=== PATIENT | female | born 1965 | race Caucasian/White ===

== ENCOUNTER 2017-01-15 14:32 | Inpatient (IN) ==
--- NOTE | 2017-01-15 16:00 | Emergency Department Note ---
Disposition Clinical Impression: Cellulitis, Abrasion of left lower leg with infection Disposition: Transfer Other Condition: Good Referrals: David Mayorga Jr, MD [Partnered Physician] - Forms: ED Satisfaction Letter Time of Disposition: 16:35 Extremity Problem HPI - General Chief complaint: ED Extremity Problem,Nontraumatic Stated complaint: Left leg infection, sent by Dr. Mayorga Time Seen by Provider: 01/15/17 15:38 Source: patient Mode of arrival: ambulatory Limitations: no limitations Nursing Notes Reviewed: Yes Vital Signs Reviewed: Yes - History of Present Illness HPI Narrative: This is a 51-year-old female who presents with a injury to her left lower extremity. Patient states last week she hit her left leg on a fence she was putting up. Patient had puncture wounds at that time that continued to get red and irritated and opened up. Patient states she went to her family doctor and they incised the area and then put packing in place. Patient states she was then told her to come over to get IV antibiotics per her pcp. Pt Subjective Complaint: extremity pain Onset (ago): week(s) (1) Consistency: constant Injury Location: left, lower extremity Pain Scale: 7 Quality: aching Radiation: none Improves with: nothing Worsens with: weight bearing, walking - Related Data Previous Rx's Medication Instructions Recorded MethylPREDNISolone [Medrol] 4 mg PO DAILY 6 Days 02/17/16 Sulfamethoxazole/Trimeth DS 1 each PO BID #20 tablet 02/17/16 [Bactrim DS] Allergies Allergy/AdvReac Type Severity Reaction Status Date / Time morphine Allergy Rash Verified 02/17/16 18:27 All systems ED: reviewed and negative except as stated. Constitutional: Denies: fever, chills, weakness, weight change Eyes: Denies: eye pain, eye discharge, vision change ENT ED: Denies: ear pain, throat pain, dental pain, hearing loss, epistaxis, congestion, dysphagia Cardiovascular: Denies: chest pain, palpitations, dyspnea on exertion, edema, syncope Respiratory: Denies: cough, dyspnea, wheezes, hemoptysis, stridor Gastrointestinal: Denies: abdominal pain, nausea, vomiting, diarrhea, constipation, hematemesis, melena, hematochezia Genitourinary: Denies: dysuria, frequency, hematuria, discharge Musculoskeletal: Denies: back pain, neck pain, arthralgia, myalgia Integumentary: Reports: lesions (puncture wounds anterior LLE), other (erythema to LLE anterior). Denies: rash, abrasion Neurological: Denies: headache, weakness, numbness, paresthesias, confusion, abnormal gait, vertigo Psychiatric: Denies: anxiety, depression, suicidal thoughts, homicidal thoughts , auditory hallucinations, visual hallucinations Endocrine: Denies: fatigue Hematological/Lymphatic: Denies: easy bleeding, easy bruising Allergic/Immunologic: Denies: facial swelling, urticaria Past Medical History - Past Medical History Attestation: Yes The following information was validated with the patient. 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 history - Social History Smoking Status: Never smoker Smokeless Tobacco Status: No Alcohol use: Reports: none Drug use: Reports: none Physical Exam - General Limitations: no limitations General appearance: alert, in no apparent distress - Head Head exam: atraumatic, normocephalic, normal inspection - Eye Eye exam: Present: normal appearance, PERRL, EOMI - ENT ENT exam: normal exam, normal oropharynx, mucous membranes moist - Expanded ENT Exam External ear exam: Present: normal external inspection Mouth exam: Present: normal external inspection Teeth exam: Present: normal inspection Throat exam: Present: normal inspection - Neck Neck exam: Present: normal inspection, full ROM, trachea midline - Chest Chest inspection: Present: normal inspection, symmetric chest wall rise - Respiratory Respiratory exam: Present: normal lung sounds bilaterally - Cardiovascular Cardiovascular exam: Present: regular rate, normal rhythm, normal heart sounds - Abdominal Exam Abdominal exam: Present: soft, Non-Tender. Absent: tenderness, distention, guarding, rebound, rigidity - Extremities Exam Extremities exam: Present: normal inspection, full ROM, tenderness (LLE). Absent: pedal edema - Expanded Upper Extremity Exam Shoulder exam: Present: normal inspection, full ROM Arm exam: Present: normal inspection, full ROM Elbow exam: Present: normal inspection, full ROM Forearm/Wrist exam: Present: normal inspection, full ROM Hand exam: Present: normal inspection, full ROM Vascular exam: Normal: capillary refill, radial pulse - Expanded Lower Extremity Exam Hip/Pelvis exam: Present: normal inspection, full ROM Upper leg exam: Present: normal inspection, full ROM Knee exam: Present: normal inspection, full ROM Lower leg exam: Present: full ROM, tenderness (L anterior leg), erythema (L anterior leg), other (puncture wounds x 2 to anterior L leg with necrotic edges) Ankle exam: Present: normal inspection, full ROM Foot/toe exam: Present: normal inspection, full ROM Neurovascular/Tendon exam: Absent: motor deficit, sensory deficit, tendon deficit - Back Exam Back exam: Present: normal inspection, full ROM. Absent: tenderness - Neurological Exam Neurological exam: Present: alert, oriented X3 - Expanded Neurological Exam Patient oriented to: Present: person, place, time Coma Scale Eye Opening: Spontaneous Coma Scale Motor Response: Obeys Commands Coma Scale Verbal Response: Oriented Coma Scale Total: 15 - Psychiatric Psychiatric exam: Present: normal affect, normal mood - Skin Skin exam: Present: warm, dry, intact, normal color Course - Consultations Consultation #1: We spoke with wound care (Dr. Macias) and they are going to come and evaluate the pt. Time: 16:00 Consultation #2: Dr. Macias will take pt to the OR. Time: 16:33 Vital Signs Temperature 98.3 F 01/15/17 14:46 Pulse Rate 70 01/15/17 14:46 Respiratory Rate 18 01/15/17 14:46 Blood Pressure 151/88 01/15/17 14:46 O2 Sat by Pulse Oximetry 98 01/15/17 14:46 Temperature 98.3 F 01/15/17 14:46 Pulse Rate 70 01/15/17 14:46 Respiratory Rate 18 01/15/17 14:46 Blood Pressure 151/88 01/15/17 14:46 O2 Sat by Pulse Oximetry 98 01/15/17 14:46 Oxygen Delivery Oxygen Delivery Room Air Extremity Problem, Nontraumati - Medical Records Medical records reviewed: Yes I reviewed the patient's medical records. - Lab Data Lab results reviewed: Yes I reviewed the patient's lab results. - Radiology Data Radiology results reviewed: Yes I reviewed the patient's radiology results.
[2017-01-15] MEDS ORDERED: Clindamycin 600 MG/50 ML 600 MG/50 ML IV.SOLN IVPB ONE ×2 (16:32→19:40)
[2017-01-15] MEDS ORDERED: Piperacillin/Tazobactam 3.375 GM in D5% in Water (Mini-Bag+) 100 ML IVPB ONE ×2 (16:32→19:40)
[2017-01-15] MEDS ORDERED: Vancomycin 1,000 MG in D5% in Water 250 ML IV ONE ×2 (16:32→19:40)
[2017-01-15] MEDS ORDERED: Dexamethasone 4 MG/ML VIAL ONE ×2 (16:45→17:53)
[2017-01-15] MEDS ORDERED: Lidocaine -MPF 2% 2 ML VIAL ONE (16:45)
[2017-01-15] MEDS ORDERED: *HR* Propofol 200 MG/20 ML VIAL IVP ONE (16:45)
[2017-01-15] MEDS ORDERED: Ondansetron 4 MG/2 ML VIAL ONE (16:45)
[2017-01-15] MEDS ORDERED: *HR* Succinylcholine 200 MG/10 ML VIAL IVP ONE (16:45)
--- NOTE | 2017-01-15 16:53 | General Surg History&Physical ---
Date of Encounter: 01/15/17 Time of Encounter: 16:40 Assessment and Plan (1) Traumatic open wound of left lower leg with infection Current Visit: Yes Status: Acute The assessment and plan as outlined above was discussed with the patient and/or family members who expressed understanding and agreement. All questions were answered. The patient had signs and symptoms suggestive of clostridial infection and necrotic fascia. She will be taken to the operating room immediately for debridement.. She will be admitted during the postoperative period for aggressive wound care and antibiotic therapy. Qualifiers: Encounter type: initial encounter Qualified Code(s): S81.802A - Unspecified open wound, left lower leg, initial encounter; L08.9 - Local infection of the skin and subcutaneous tissue, unspecified History of Present Illness Chief complaint: Infection left lower leg HPI: Ms. Parr is a 51 year old female Who sustained a traumatic puncture injury several days ago while working with fencing. She now has an exquisitely painful left lower extremity with visible barr liquid draining from the wounds. Any attempt at local wound exploration gave exquisite pain. Findings are concerning for underlying clostridial infection. She is given clindamycin upon examination and we scheduled immediate debridement of tissue in the operating room. Past Med Surg Social Fam HX - Past Medical History Medical history: no medical history Psychiatric history: no psych history - Past Surgical History Surgical History: no surgical history - Social History Smoking Status: Never smoker Smokeless Tobacco Status: No Alcohol use: none Drug use: none Medications and Allergies MethylPREDNISolone [Medrol] 4 mg PO DAILY 6 Days 02/17/16 [Rx] Sulfamethoxazole/Trimeth DS [Bactrim DS] 1 each PO BID #20 tablet 02/17/16 [Rx] Allergies morphine Allergy (Verified 02/17/16 18:27) Rash Review of Systems All systems PM: reviewed and no additional remarkable complaints except as stated All systems PM: A 10-system review of systems was performed and is negative for pertinent findings except as documented above in the HPI. General Surgery Exam Initial Vital Signs Temp Pulse Resp BP Pulse Ox 98.3 F 70 18 151/88 98 01/15/17 14:46 01/15/17 14:46 01/15/17 14:46 01/15/17 14:46 01/15/17 14:46 - General physical appearance well developed, well nourished, no distress - Respiratory normal expansion, normal respiratory effort, clear to percussion, clear to auscultation - Cardiovascular Cardiovascular exam: Present: RRR, 15, 16 - Abdomen Abdomen general surgery: Present: bowel sounds present, soft, non tender - Integumentary Integumentary general surgery: Present: other (2 necrotic puncture wounds draining green liquid with visible liquefactive necrosis at the base left lower extremity) - Neurologic Present: CN 2-12 grossly intact, normal coordination, normal sensation - Psychiatric Psychiatric general surgery: Present: appropriate, oriented to person, oriented to place, oriented to time, speech is normal, memory intact Results - Labs All other labs normal.
[2017-01-15] MEDS ORDERED: Lidocaine/EPI 1:100k 1% 20 ML VIAL ONE (17:12)
[2017-01-15 17:13] LABS: Basophils % 0.4 %; Eosinophils # 0.1 K/mcL (0.0-0.6); Eosinophils % 1.3 %; Hematocrit 37.3 % (35.3-44.9); Hemoglobin 12.2 g/dL (11.5-15.4); Immature Granulocytes % 0.4 % (0-4); Lymphocytes # 1.5 K/mcL (0.6-4.6); Lymphocytes % 22.2 %; Mean Corpuscular HGB Conc 32.7 g/dL (31.6-35.5); Mean Corpuscular Hemoglobin 27.9 pg (28.0-33.3); Mean Corpuscular Volume 85.4 fL (83.0-100.0); Mean Platelet Volume 9.7 fL (9.4-12.4); Monocytes # 0.4 K/mcL (0.0-1.3); Monocytes % 5.9 %; Neutrophils # 4.8 K/mcL (1.6-8.9); Platelet Count 278 K/mcL (140-400); Red Blood Count 4.37 M/mcL (3.82-4.97); Red Cell Distribution Width 13.4 % (11.5-14.5); Segmented Neutrophils % 69.8 %
[2017-01-15 17:18] LABS: BUN/Creatinine Ratio 12 (6-26); Blood Urea Nitrogen 9 mg/dL (7-20); Calcium 9.5 mg/dL (8.6-10.8); Carbon Dioxide 22 mEq/L (19-29); Chloride 107 mEq/L (98-109); Glucose 88 mg/dL (70-99); Osmolality,Calculated 288 (280-300); Potassium 3.4 mEq/L (3.5-4.5); Sodium 140 mEq/L (136-145); eGFR For African Americans > 60 (> 60); eGFR For Non-African Americans > 60 (> 60)
[2017-01-15] MEDS ORDERED: *HR* Midazolam HCl 2 MG/2 ML VIAL ONE (17:22)
[2017-01-15] MEDS ORDERED: *HR* FentaNYL (PF) 100 MCG/2 ML VIAL ONE ×2 (17:22→17:48)
[2017-01-15] MEDS ORDERED: Scopolamine Patch 1.5 MG PATCH.TD72 ONE (17:25)
--- NOTE | 2017-01-15 17:34 | Anesthesia Evaluation PreOp ---
Date of Encounter: 01/15/17 Time of Encounter: 17:32 - Past History Planned Operation: L leg debridement Cardiac History: Denies any Significant Hx Pulmonary History: Denies Any Significant HX DIRECTOR TELEVISION History: Denies Any Significant HX Other Medical History: Diabetes Type II (pre-diabetes), Other (BMI 44) Anesthesia History: Problems (nausea) Alcohol Use: none Drug use: none Medications and Allergies Cyanocobalamin (Vitamin B-12) [Vitamin B12] 1,000 mcg PO MOWEFR 01/15/17 [ History] Allergies morphine Allergy (Verified 02/17/16 18:27) Rash - Meds/Allergy Pre-op Review Medications Reviewed: Yes Allergies Reviewed: Yes Beta Blockers on Current Med List: No Anesthesia Results - Labs 01/15/17 16:59 01/15/17 16:59 Anesthesia Exam Last Vital Signs Temp 98.3 F 01/15/17 14:46 Pulse 70 01/15/17 14:46 Resp 14 01/15/17 17:06 BP 145/83 01/15/17 17:06 Pulse Ox 98 01/15/17 14:46 Weight: 122 kg NPO (# of Hours): last meal at noon - HEENT Pupil (Motor): Pupils equal, EOMI Mallampati: III Teeth: Poor dentition Oral Opening: Greater than 3 - DIRECTOR TELEVISION LOC: Oriented DIRECTOR TELEVISION Motor: Normal RUE, Normal LUE, Normal RLE, Normal LLE, Normal Face DIRECTOR TELEVISION Sensory: Normal: RUE, LUE, RLE, LLE, Face - Cardiac Rhythm: Regular Murmur: None - Pulmonary Breath Sounds: bilateral Clear Respiratory Effort: Symmetrical Anesthesia Assess/Plan ASA Score: 3 (BMI 122) Modified Abraham Scale for Level of Consciousness: Cooperative, oriented, and tranquil Anesthetic Plan: General, Precautions (RSI due to recent meal) Monitoring Plan: Standard Monitors Recovery Plan: PACU
[2017-01-15] MEDS ORDERED: Clindamycin 900 MG/50 ML 900 MG/50 ML IV.SOLN IVPB ONE (17:39)
[2017-01-15 17:53] LABS: Platelet Estimate Normal (Normal)
[2017-01-15] MEDS ORDERED: *HR* Heparin 5,000 UNIT/ML VIAL SQ SCH (18:00)
[2017-01-15] MEDS ORDERED: Ondansetron 4 MG/2 ML VIAL IVP ONE ×2 (18:07→19:40)
[2017-01-15] MEDS ORDERED: Dexamethasone 4 MG/ML VIAL IVP ONE (18:07)
[2017-01-15] MEDS ORDERED: *HR* Labetalol 100 MG/20 ML MDV IVP PRN (18:07)
--- NOTE | 2017-01-15 18:29 | Operative Note ---
Date of procedure: 01/15/17 Pre-op diagnosis: Infection left lower extremity Post-op diagnosis: same Procedure: Debridement skin, subcutaneous tissue, fascia, and muscle (8 cm x 5 cm) Anesthesia: KAILYN Surgeon: Kian Macias Estimated blood loss (cc): 10 Specimen: Skin and fascia. Aerobic and anaerobic cultures. Gram stain. Condition: stable Disposition: PACU Procedure in Detail: After informed consent the patient was taken to the operating room on an urgent basis. She is given adequate general anesthetic. The left leg was prepped and draped in sterile fashion utilizing Betadine solution standard draping techniques. Timeout was taken patient was identified lateralizing Tal was identified. The 2 wounds on the left lower extremity had brar watery drainage and visible fascial necrosis. The wound was highly suggestive of clostridia infection. I circumferentially removed the skin around both wounds down to the level of the fascia. It was immediately apparent that the 2 wounds were connected. I divided the tissue between the 2 wounds. The tissue between the 2 wounds was not normal. The underlying fat was necrotic. I had to extend the amount of skin that I debrided. I debrided back to normal tissue on the skin which left an 8 cm x 5 cm defect. At the base of this defect was full- thickness subcutaneous necrosis with barr liquefaction. At the level of the fascia there was barr discoloration the fascia was removed off the muscular layer. At the end of the debridement all tissue margins were normal. Deep tissue cultures were obtained for aerobic and anaerobic cultures. I did send a deep tissue block for Gram stain. Wound is irrigated with copious amounts of antibiotic containing solution. The wound is packed with iodoform. Sterile dressing is applied.
[2017-01-15] MEDS ORDERED: Ketorolac 30 MG/ML VIAL IVP ONE (18:36)
[2017-01-15] MEDS: *HR* HYDROmorphone (PF) 1 MG/ML SYRINGE IVP PRN ×4 (18:40→19:15)
[2017-01-15] MEDS ORDERED: Ringers Solution, Lactated 1,000 ML ONE (18:59)
--- NOTE | 2017-01-15 19:11 | Anesthesia Evaluation Post Op ---
Date of Encounter: 01/15/17 Time of Encounter: 19:11 - Vital Signs Vital Signs: Last Vital Signs Temp 98.4 F 01/15/17 19:00 Pulse 81 01/15/17 19:00 Resp 16 01/15/17 19:00 BP 145/92 01/15/17 19:00 Pulse Ox 100 01/15/17 19:00 - Lungs Lungs: Clear Ascult./Percussion - Airway Airway: Non-obstructed - Cardiovascular Regular Rate - Mental Status Mental Status: Alert & Oriented, Answers Appropriately - Pain Pain Scale: 2 - Nausea Vomiting Nausea Vomiting: Not Present - Hydration Hydration: Ice chips - Discharge PostOp Status: Transfer Patient to floor
[2017-01-15] MEDS: 0.9 % Sodium Chloride 1,000 ML IVC SCH (21:02)
[2017-01-16] MEDS: *HR* OxyCODONE/APAP 5/325 TABLET PO PRN ×2 (03:50→20:08)
[2017-01-16] MEDS: *HR* Heparin 5,000 UNIT/ML VIAL SQ SCH ×2 (05:58→16:41)
[2017-01-16] MEDS: 0.9 % Sodium Chloride 1,000 ML IVC SCH ×2 (06:05→21:45)
[2017-01-16] MEDS: *HR* HYDROmorphone (PF) 1 MG/ML SYRINGE IVP PRN ×2 (08:05→11:56)
[2017-01-16] MEDS ORDERED: Ondansetron 4 MG/2 ML VIAL IVP PRN (11:38)
[2017-01-16] MEDS ORDERED: Vancomycin 1,000 MG in D5% in Water 250 ML IVPB SCH (11:41)
--- NOTE | 2017-01-16 11:45 | General Surgery Progress Note ---
Date of Encounter: 01/17/17 Time of Encounter: 11:30 - Assessment and Plan (1) Traumatic open wound of left lower leg with infection Current Visit: Yes Status: Acute IV antibiotics- Vancomycin, Clindmycin, Zosyn Daily wound care- packing as ordered Supportive care/pain control Ambulate with assistance Wound cultures- pending Qualifiers: Encounter type: initial encounter Qualified Code(s): S81.802A - Unspecified open wound, left lower leg, initial encounter; L08.9 - Local infection of the skin and subcutaneous tissue, unspecified (2) DVT prophylaxis Current Visit: Yes Status: Acute Heparin 5,000 units SQ twice daily for DVT prophylaxis Subjective Patient reports: no new complaints, still having pain, tolerating a regular diet , voiding w/o difficulty, afebrile Objective Vital Signs - Last 8 Hours Temp Pulse Resp BP Pulse Ox 01/16/17 08:07 97.9 F 63 15 130/82 95 01/16/17 03:59 97.7 F 66 16 130/71 94 L Intake and Output 01/15/17 01/16/17 01/16/17 23:59 07:59 15:59 Intake Total 250 / 250 1100 / 1100 240 / 240 Output Total 210 / 210 600 / 600 200 / 200 Balance 40 / 40 500 / 500 40 / 40 Intake: IV Fluids 250 / 250 1100 / 1100 Vancocin 1,000 MG In 250 / 250 Dextrose 5% 250 ML @ 167 mls/hr IV ONCE ONE Rx#: [id number] 0.9 % Sodium Chloride 1, 1000 / 1000 000 ML @ 75 mls/hr IVC . [id number] [facility] Rx#: [id number] Zosyn 3.375 GM In 100 / 100 Dextrose 5% (Minibag+) 100 ML 100 ML @ 25 mls/hr IVPB ONCE ONE Rx#: [id number] Oral 240 / 240 Output: Urine 200 / 200 600 / 600 200 / 200 Estimated Blood Loss 10 / 10 Other: Meal Breakfast Percent of Meal Consumed 100% Weight 124.8 kg Patient Weight 01/16/17 23:59 Weight 124.8 kg - General physical appearance well developed, well nourished, no distress - Eyes normal ocular movement - ENT normal mucosa, atraumatic, normocephalic - Neck Neck exam: trachea midline - Respiratory normal expansion, normal respiratory effort, clear to auscultation - Cardiovascular Cardiovascular exam: Present: RRR - Abdomen Abdomen: Present: bowel sounds present, soft, non tender - Incision Incision: Present: open (LLE wound open with 90% granulation tissue, 10% fibrin. Small amount of serous drainage noted. No surrounding erythema or induration. Tender to evaluation.) - Integumentary no rash, no growths - Neurologic CN 2-12 grossly intact - Psychiatric oriented to time, oriented to person, oriented to place, speech is normal, memory intact - Labs 01/15/17 16:59 01/15/17 16:59 - VTE Documentation of Mechanical Device: Intermittent pneumatic compression device Consult Discharge Plan - Plan Referrals: Katja Piper DO [Primary Care Provider] - - Attending Attestation I examined this patient and my medical decision-making was reviewed with the PATIENT CARE DIRECTOR/PA/Advanced Practice Nurse/Resident Physician. I agree with the documented findings, disposition and treatment plan as described except to the extent set forth below. The patient is seen and evaluated on morning rounds. She has responded well to aggressive debridement for complex abscess of the left lower extremity. She also has the diagnosis of morbid obesity. Continue IV antibiotics and wound packing. Kian Macias MD FACS
[2017-01-16] MEDS: Piperacillin/Tazobactam 3.375 GM in D5% in Water (Mini-Bag+) 100 ML IVPB SCH ×3 (12:05→23:17)
[2017-01-16] MEDS: Clindamycin 600 MG/50 ML 600 MG/50 ML IV.SOLN IVPB SCH ×3 (12:05→23:17)
[2017-01-16] MEDS: Vancomycin 1,500 MG in D5% in Water 250 ML IVPB SCH (13:44)
[2017-01-17] MEDS: Vancomycin 1,500 MG in D5% in Water 250 ML IVPB SCH ×2 (01:07→13:20)
[2017-01-17] MEDS: *HR* OxyCODONE/APAP 5/325 TABLET PO PRN ×3 (02:41→19:20)
[2017-01-17] MEDS: *HR* Heparin 5,000 UNIT/ML VIAL SQ SCH ×2 (06:25→17:21)
[2017-01-17] MEDS: Clindamycin 600 MG/50 ML 600 MG/50 ML IV.SOLN IVPB SCH ×2 (08:30→17:20)
[2017-01-17] MEDS: Piperacillin/Tazobactam 3.375 GM in D5% in Water (Mini-Bag+) 100 ML IVPB SCH ×2 (08:30→17:20)
--- NOTE | 2017-01-17 09:14 | General Surgery Progress Note ---
Date of Encounter: 01/17/17 Time of Encounter: 09:11 - Assessment and Plan (1) Traumatic open wound of left lower leg with infection Current Visit: Yes Status: Acute IV antibiotics- Vancomycin, Clindmycin, Zosyn Remains afebrile. Daily wound care- Calcium alginate, Gauze ADB pads Supportive care/pain control Ambulate with assistance Wound cultures- pending (NGTD) DVT prophylaxis with heparin subq 5000 units BID Qualifiers: Encounter type: initial encounter Qualified Code(s): S81.802A - Unspecified open wound, left lower leg, initial encounter; L08.9 - Local infection of the skin and subcutaneous tissue, unspecified Subjective Patient reports: no new complaints, feels better, still having pain, tolerating a regular diet, afebrile Objective Vital Signs - Last 8 Hours Temp Pulse Resp BP Pulse Ox 01/17/17 07:44 97.7 F 56 16 116/74 96 01/17/17 02:37 97.7 F 64 20 121/73 95 Intake and Output 01/16/17 01/17/17 01/17/17 23:59 07:59 15:59 Intake Total 1350 / 1350 400 / 400 Output Total 1000 / 1000 900 / 900 Balance 350 / 350 -500 / -500 Intake: IV Fluids 1350 / 1350 400 / 400 0.9 % Sodium Chloride 1, 1000 / 1000 000 ML @ 75 mls/hr IVC . [id number] [facility] Rx#: [id number] Cleocin 600 MG/50 ML 600 50 / 50 mg In 50 ml @ 50 mls/hr IVPB Q8HR [facility] Rx#: [id number] Zosyn 3.375 GM In 100 / 100 100 / 100 Dextrose 5% (Minibag+) 100 ML 100 ML @ 25 mls/hr IVPB Q8HR [facility] Rx#: [id number] Vancocin 1,500 MG In 250 / 250 250 / 250 Dextrose 5% 250 ML @ 166. 67 mls/hr IVPB Q12H [facility] Rx#:[id number] Output: Urine 1000 / 1000 900 / 900 Other: Meal Dinner Percent of Meal Consumed 100% - Additional Exam - General physical appearance well developed, well nourished, no distress - Eyes normal ocular movement - ENT normal mucosa, atraumatic, normocephalic - Neck Neck exam: trachea midline - Respiratory normal expansion, normal respiratory effort, clear to auscultation - Cardiovascular Cardiovascular exam: Present: RRR - Abdomen Abdomen: Present: bowel sounds present, soft, non tender - Incision Incision: Present: open (LLE wound open with 90% granulation tissue, 10% fibrin. Small amount of serous drainage noted. No surrounding erythema or induration. Tender to evaluation.) - Integumentary no rash, no growths - Neurologic CN 2-12 grossly intact - Psychiatric oriented to time, oriented to person, oriented to place, speech is normal, memory intact - Labs 01/15/17 16:59 01/15/17 16:59 - VTE Documentation of Mechanical Device: Intermittent pneumatic compression device Consult Discharge Plan - Plan Additional Instructions: Cleanse wound with soap and water. Pack with calcium alginate, cover with 4x4 gauze and ADB pad and tape to secure daily. You have a follow-up appointment in the [facility] on SundayJanuary 22 at 8:30 am. Prescriptions: OxyCODONE/APAP 5/325 [Percocet 5/325 MG] 1 each PO Q4HR PRN #42 tablet PRN Reason: Pain Cephalexin [Keflex] 500 mg PO QID #44 capsule - Attending Attestation I examined this patient and my medical decision-making was reviewed with the SMART ENERGY SPECIALIST/PA/Advanced Practice Nurse/Resident Physician. I agree with the documented findings, disposition and treatment plan as described except to the extent set forth below. The patient was seen and evaluated on morning rounds with the resident. Overall she is stable. She is having a good deal of serosanguineous drainage from her wound. There is no necrotic tissue in the wound. We will continue with calcium alginate wound packing and IV antibiotics. We may be able to transition her to oral antibiotics tomorrow for discharge. Kian Macias MD FACS
[2017-01-17] MEDS: 0.9 % Sodium Chloride 1,000 ML IVC SCH (13:20)
[2017-01-18] MEDS: Clindamycin 600 MG/50 ML 600 MG/50 ML IV.SOLN IVPB SCH ×2 (00:06→07:46)
[2017-01-18] MEDS: Piperacillin/Tazobactam 3.375 GM in D5% in Water (Mini-Bag+) 100 ML IVPB SCH ×2 (00:06→07:46)
[2017-01-18] MEDS: Vancomycin 1,500 MG in D5% in Water 250 ML IVPB SCH (01:29)
[2017-01-18] MEDS: *HR* OxyCODONE/APAP 5/325 TABLET PO PRN (03:28)
[2017-01-18] MEDS: *HR* Heparin 5,000 UNIT/ML VIAL SQ SCH (05:54)
[2017-01-18] MEDS ORDERED: MOM Conc 10 ML UD.LIQ PO ONE (08:33)
[2017-01-18] MEDS: cephALEXin 500 MG CAPSULE PO SCH ×2 (10:08→13:20)
[2017-01-18] MEDS: 0.9 % Sodium Chloride 1,000 ML IVC SCH (10:08)
--- NOTE | 2017-01-18 12:03 | Discharge Summary ---
<Andres Torres - Last Filed: 01/18/17 13:55> Date of Encounter: 01/17/17 Time of Encounter: 12:00 - Discharge Diagnosis (1) Traumatic open wound of left lower leg with infection Priority: Primary Status: Acute Qualifiers: Encounter type: initial encounter Qualified Code(s): S81.802A - Unspecified open wound, left lower leg, initial encounter; L08.9 - Local infection of the skin and subcutaneous tissue, unspecified - Discharge Medications Prescriptions: OxyCODONE/APAP 5/325 [Percocet 5/325 MG] 1 each PO Q4HR PRN #42 tablet PRN Reason: Pain Cephalexin [Keflex] 500 mg PO QID #44 capsule Home Medications: Cyanocobalamin (Vitamin B-12) [Vitamin B12] 1,000 mcg PO MOWEFR 01/15/17 [ History] Cephalexin [Keflex] 500 mg PO QID #44 capsule 01/18/17 [Rx] OxyCODONE/APAP 5/325 [Percocet 5/325 MG] 1 each PO Q4HR PRN #42 tablet 01/18/17 [Rx] Allergies/Adverse Reactions: Allergies meperidine [From Demerol] Allergy (Verified 01/16/17 04:27) Rash morphine Allergy (Verified 02/17/16 18:27) Rash Flu Vaccine Adverse Reaction (Uncoded 01/16/17 04:29) See Comments Dizziness/ Syncope General Surgery Exam Initial Vital Signs Temp Pulse Resp BP Pulse Ox 98.3 F 70 18 151/88 98 01/15/17 14:46 01/15/17 14:46 01/15/17 14:46 01/15/17 14:46 01/15/17 14:46 - General physical appearance well developed, well nourished, no distress - Neck trachea midline - Respiratory normal expansion, clear to auscultation - Cardiovascular Cardiovascular exam: Present: RRR, no murmurs/rubs/gallops - Abdomen Abdomen general surgery: Present: bowel sounds present, soft, non tender - Incision Incision: Present: clean and dry - Neurologic Present: CN 2-12 grossly intact - Musculoskeletal Present: other (LLE wound) - Psychiatric Psychiatric general surgery: Present: A&Ox3 Date of admission: 01/15/17 17:02 Primary care physician: Katja Piper DO Discharging clinician: Kian Macias Anticipated date of discharge: 01/18/17 - Patient Status Disposition: Home Health Service Condition: Good Overall status at discharge: patient is progressing back to baseline - Discharge Instructions Follow Up With: Katja Piper DO [Primary Care Provider] - Additional Instructions: Cleanse wound with soap and water. Pack with calcium alginate, cover with 4x4 gauze and ADB pad and tape to secure daily. You have a follow-up appointment in the [facility] on SundayJanuary 22 at 8:30 am. - Diet and Activity Activity: increase activity as tolerated Diet: advance to your usual diet - Hospital Course Hospital course: Ms. 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 She now has an exquisitely painful left lower extremity with visible barr liquid draining from the wounds. Any attempt at local wound exploration gave exquisite pain. Findings are concerning for underlying clostridial infection. She is given clindamycin upon examination and we scheduled immediate debridement of tissue in the operating room. Tibula/Fibula XR revealed soft tissue air extending from the wound concerning for infectious gas-forming process with the provided history. She was taken immediately to the operating room. After informed consent the patient was taken to the operating room on an urgent basis. She is given adequate general anesthetic. The left leg was prepped and draped in sterile fashion utilizing Betadine solution standard draping techniques. Timeout was taken patient was identified lateralizing Tal was identified. The 2 wounds on the left lower extremity had barr watery drainage and visible fascial necrosis. The wound was highly suggestive of clostridia infection. I circumferentially removed the skin around both wounds down to the level of the fascia. It was immediately apparent that the 2 wounds were connected. I divided the tissue between the 2 wounds. The tissue between the 2 wounds was not normal. The underlying fat was necrotic. I had to extend the amount of skin that I debrided. I debrided back to normal tissue on the skin which left an 8 cm x 5 cm defect. At the base of this defect was full- thickness subcutaneous necrosis with barr liquefaction. At the level of the fascia there was barr discoloration the fascia was removed off the muscular layer. At the end of the debridement all tissue margins were normal. Deep tissue cultures were obtained for aerobic and anaerobic cultures. I did send a deep tissue block for Gram stain. Wound is irrigated with copious amounts of antibiotic containing solution. The wound is packed with iodoform. Sterile dressing is applied. She received 3 days of IV antibiotics (clindamycin, Zosyn, and Vancomycin). On POD#3 she was transitioned off IV antibiotics to PO antibiotics (500mg Keflex QID) Her wound was dressed with Calcium alginate, Gauze ADB pads. She remained afebrile throughout her stay. She will be discharged with 11 days of Keflex to complete a 14 day course of antibiotics. Her vital signs were stable at the time of discharge. Her plan of care was discussed with the patient, and she voiced understanding and agreement. - Time Spent with Patient Total time spent providing and/or coordinating discharge services: Labs on day of discharge: Labs from last 24 hours 01/18/17 00:28 Vancomycin Trough 18.7 Preliminary micro results at discharge 01/15/17 18:22 Wound Culture - Preliminary Left Leg Pasteurella species 01/15/17 18:22 Anaerobic Culture - Preliminary Left Leg At this time, no anaerobic growth is present. The culture will be finalized after 5 days of incubation. <Kian Macias - Last Filed: 01/18/17 15:37> Date of Encounter: 01/18/17 - Discharge Diagnosis (1) Traumatic open wound of left lower leg with infection Status: Acute Qualifiers: Encounter type: initial encounter Qualified Code(s): S81.802A - Unspecified open wound, left lower leg, initial encounter; L08.9 - Local infection of the skin and subcutaneous tissue, unspecified General Surgery Exam Initial Vital Signs Temp Pulse Resp BP Pulse Ox 98.3 F 70 18 151/88 98 01/15/17 14:46 01/15/17 14:46 01/15/17 14:46 01/15/17 14:46 01/15/17 14:46 Date of admission: 01/15/17 17:02 Primary care physician: Katja Piper DO - Hospital Course Hospital course: Ms. Parr is a 51 year old female - Time Spent with Patient Total time spent providing and/or coordinating discharge services: Labs on day of discharge: Labs from last 24 hours 01/18/17 00:28 Vancomycin Trough 18.7 Preliminary micro results at discharge 01/15/17 18:22 Wound Culture - Preliminary Left Leg Pasteurella species 01/15/17 18:22 Anaerobic Culture - Preliminary Left Leg At this time, no anaerobic growth is present. The culture will be finalized after 5 days of incubation. - Attending Attestation I examined this patient and my medical decision-making was reviewed with the BAND TEACHER/PA/Advanced Practice Nurse/Resident Physician. I agree with the documented findings, disposition and treatment plan as described except to the extent set forth below. The patient was seen and evaluated on morning rounds. We should be able to transition her to oral antibiotics and discharge her to home. I will follow up with the patient wound clinic. Kian Macias MD FACS
--- NOTE | 2017-01-18 14:04 | Physician Discharge Referral ---
Home Health/Hosp Referral Info Transfer to: Home Health Attending Provider: Kian Macias MD Provider in Charge Post Discharge: PCP - Diagnosis (1) Traumatic open wound of left lower leg with infection Priority: Primary Status: Acute - Respiratory Orders None - Dressing/Wound Care Site: LLE Type of Dressing/Treatments w/Frequency: Cleanse wound with soap and water. Pack with calcium alginate, cover with 4x4 gauze and ADB pad and tape to secure daily. - Diet/Nutrition Diet/Nutrition Orders: Regular - Activity Activity Orders: Up ad juan - Services Needed Following services are medically necessary services: Nursing - Transfer Medications Prescriptions: OxyCODONE/APAP 5/325 [Percocet 5/325 MG] 1 each PO Q4HR PRN #42 tablet PRN Reason: Pain Cephalexin [Keflex] 500 mg PO QID #44 capsule Home Medications: Cyanocobalamin (Vitamin B-12) [Vitamin B12] 1,000 mcg PO MOWEFR 01/15/17 [ History] Cephalexin [Keflex] 500 mg PO QID #44 capsule 01/18/17 [Rx] OxyCODONE/APAP 5/325 [Percocet 5/325 MG] 1 each PO Q4HR PRN #42 tablet 01/18/17 [Rx] Allergies/Adverse Reactions: Allergies meperidine [From Demerol] Allergy (Verified 01/16/17 04:27) Rash morphine Allergy (Verified 02/17/16 18:27) Rash Flu Vaccine Adverse Reaction (Uncoded 01/16/17 04:29) See Comments Dizziness/ Syncope Certification: Further, I certify that my clinical findings support that this patient is homebound (i.e. absences from home require considerable and taxing effort and are for medical reasons or congregation services or infrequently or short duration when for other reasons) because: Homebound Reason: Patient requires assistance of a person or device to safely leave home, Leaving home requires considerable and taxing effort due to condition Attestation: My signature below is to certify that this patient is under my care and that I, or nurse practitioner, or a physician's delivery driver assistant working with me, has a face-to -face encounter with this patient.
[2017-01-18 15:56] VITALS: BP 138/83
[2017-01-18] MEDS ORDERED: Aminoglycoside Consult 1 EACH MC ONE (16:03)
== END 2017-01-18 16:04 | disposition home health service (06) | DRG 580 ==
LOC: EMEROO 14:32 → 3ANU 14:32
PROVIDERS: ADMIT Surgery; ATTEND Surgery